=== PATIENT | female | born 1985 | race Caucasian/White ===

== ENCOUNTER 2020-12-30 14:21 | Emergency (ER) | payer OTHER ==
[~2020-12-30] VITALS: Ht 182.9 cm; Wt 149.7 kg
[2020-12-30 15:37] LABS: ABSOLUTE BASOPHILS 0.1 thou/uL (0.0-0.2); ABSOLUTE EOSINOPHILS 0.2 thou/uL (0.0-0.7); ABSOLUTE LYMPHOCYTES 3.8 thou/uL (0.8-5.3); ABSOLUTE MONOCYTES 0.7 thou/uL (0.0-1.2); ABSOLUTE NEUTROPHILS 8.2 thou/uL (1.6-8.1); BASOPHILS 0.9 %; EOSINOPHILS 1.6 %; HEMATOCRIT 46.4 % (37.0-47.0); HEMOGLOBIN 15.7 gm/dL (12.0-15.0); LYMPHOCYTES 29.3 %; MCH 29.4 pg (26.0-34.0); MCHC 33.8 g/dL (28.0-37.0); MONOCYTES 5.3 %; MPV 8.2 fl. (7.2-11.1); NUCLEATED RBCS 0 /100WBC; PLATELET COUNT* 429 thou/uL (150-400); POLYS 62.9 %; RBC 5.33 mil/uL (4.20-5.00); RDW-CV 13.5 % (10.5-14.5)
[2020-12-30 15:49] LABS: CALCIUM 8.3 mg/dL (8.5-10.1); POTASSIUM 3.3 mmol/L (3.5-5.1)
[2020-12-30] MEDS ORDERED: PROAIR HFA8.5 GM INH (16:47)
[2020-12-30] MEDS ORDERED: PREDNISONE 20 M20 MG PO (16:47)
[2020-12-30] MEDS ORDERED: LEVOFLOXACIN750 MG PO (16:47)
[2020-12-30] MEDS ORDERED: AZITHROMYCIN500 MG PO (17:05)
[2020-12-30 17:13] VITALS: BP 124/69
== END 2020-12-30 17:14 | disposition home or self-care (01) ==
LOC: M.ERS 14:21
PROVIDERS: Nurse Practitioner
DX: R06.00 Dyspnea, unspecified (principal); R05 Cough; R53.81 Other malaise; E66.9 Obesity, unspecified; Z88.1 Allergy status to other antibiotic agents; Z88.0 Allergy status to penicillin